=== PATIENT | male | born 1950 | race Caucasian/White ===

== ENCOUNTER → 2023-06-29 13:35 | Outpatient (CLI) | payer OTHER, SELFPAY ==
--- NOTE | 2023-06-29 13:37 | DI.ECHO.S_ITS ---
[facility] +---------+ : : [address] : [address] : : : : [id number] : : : : Phone: [phone] +---------+ Echocardiogram Report + + :Name: JAY BETH Study Date: 06/29/2023 Height: 70 in : :[facility] ReadingLocation: Weight: 247 lb : : Gender: Male BSA: 2.3 m2 : :: 1950 Age: 73 yrs BP: 137/83 mmHg: :Reason For Study: SCREENING OFR HISTORY AND PHYSICAL : :EVALUATION : :Ordering Physician: REMEDIOS, : :JOMAR Performed By: Magnolia Yan : :Referring: JOMAR WHITTAKER : + + Interpretation Summary Sinus rhythm with HR 50-64 bpm during the exam and RBBB. Normal LV size and wall thickness; low normal EF estimated at 50-55%. Stage II diastolic dysfunction. Mildly dilated RV; otherwise normal chamber sizes. Aortic sclerosis without stenosis. There is a pacing lead traversing the tricuspid valve. Compared to prior study 02/01/2022 RV enlargement is new. Procedure: A two-dimensional transthoracic echocardiogram with color flow and Doppler was performed. The study quality was technically adequate. Comparison is made with the echocardiogram of 02/01/2022. The heart rate ranged between 50-64 bpm during the study. Left Ventricle: The left ventricle is normal in size and wall thickness. The ejection fraction is estimated to be 50-55%. Right Ventricle: There is a pacemaker lead in the right ventricle. The right ventricle is mildly dilated. The right ventricular systolic function is normal. Atria: The left atrial size is normal. There is a catheter/pacemaker lead seen in the right atrium. Right atrial size is normal. There is no Doppler evidence for an interatrial shunt. Mitral Valve: The mitral valve is normal in structure and function. There is trace mitral regurgitation. Aortic Valve: The aortic valve is trileaflet. The aortic valve is mildly calcified. There is no aortic valve stenosis. No aortic regurgitation is present. Tricuspid Valve: The tricuspid valve is normal in structure and function. Pulmonary artery pressures cannot be estimated because of the lack of a measurable TR jet velocity. No tricuspid regurgitation. Pulmonic Valve: The pulmonic valve leaflets are thin and pliable; valve motion is normal. There is mild to moderate pulmonic regurgitation. Great Vessels: The aortic root is normal size. The dimensions of the ascending aorta are normal. The inferior vena cava was not visualized. Pericardium/ Pleura There is no pericardial effusion. There is no pleural effusion. MMode/2D Measurements & Calculations LVIDd: 5.6 cm LVOT diam: 2.2 cm LVIDs: 3.7 cm Ao root diam: 3.4 cm FS: 34.6 % asc Aorta Diam: 3.7 cm IVSd: 0.94 cm Ao Arch Diam (Prox Trans): 2.6 cm LVPWd: 1.1 cm LV lemus. diameter/BSA (cm/m^2): 2.4 LV sys. diameter/BSA (cm/m^2): 1.6 LA A2 area: 20.0 cm2 RA long axis: 5.5 cm LA A4 area: 16.1 cm2 RA area: 18.7 cm2 LA length (vol): 5.0 cm RA vol: 54.0 ml LA vol: 54.5 ml RA : 23.7 ml/m2 LA vol index: 23.9 ml/m2 RVD1 (basal): 4.3 cm RVD2 (mid): 3.9 cm TAPSE: 2.1 cm Doppler Measurements & Calculations Ao V2 max: 157.3 cm/sec LVOT Max Luis M: 86.9 cm/sec Ao V2 mean: 105.5 cm/sec LV V1 max P.0 mmHg Ao max P.9 mmHg LV V1 VTI: 17.4 cm Ao mean P.0 mmHg SEA(I,D): 2.4 cm2 Ao V2 VTI: 27.1 cm SEA(V,D): 2.1 cm2 sev ratio: 0.64 SEA indexed to BSA (cm^2/m^2): 1.1 MV E max luis m: 64.8 cm/sec PA V2 max: 113.9 cm/sec MV A max luis m: 54.8 cm/sec PA V2 mean: 80.9 cm/sec MV E/A: 1.2 PA mean P.9 mmHg Med Peak E' Luis M: 5.3 cm/sec PA pr(Accel): 49.5 mmHg E/E' med: 12.2 Lat Peak E' Luis M: 6.2 cm/sec E/E' lat: 10.4 E/e' average: 11.3 MV dec time: 0.19 sec SV(LVOT): 65.0 ml Electronically signed by: Jailene Pereira M.D. on Reading Physician:06/30/2023 12:05 AM
== END ==
PROVIDERS: Referring Provider Orthopaedic Surgery; Visit Provider Physician Assistant
DX: Z00.00 Encounter for general adult medical examination without abnormal findings (principal); I37.1 Nonrheumatic pulmonary valve insufficiency
CPT/HCPCS: 93306